=== PATIENT | male | born 1995 | race Caucasian/White ===

== ENCOUNTER 2017-03-19 09:32 | Emergency (ER) | payer BC ==
[2017-03-19] MEDS ORDERED: Sodium Chloride 0.9% 10 ML Syringe FLUSH PRN (10:25)
[2017-03-19] MEDS ORDERED: Ketorolac 30 MG/ML SDV IVPUSH ONE (10:26)
[2017-03-19] MEDS ORDERED: Sodium Chloride 0.9% 1,000 ML IV SCH (10:30)
--- NOTE | 2017-03-19 11:03 | CR ---
Chest: Two views of the chest were obtained. Comparison: No prior chest x-ray. Heart size and mediastinum are normal. Lungs are clear. Bony structures are unremarkable. Impression: 1. Nothing acute is appreciated on two-view chest x-ray. Diagnostic code #1
--- NOTE | 2017-03-19 12:31 | EDM.PDOC ---
ED HPI GENERAL MEDICAL PROBLEM - General Chief Complaint: Fever Stated Complaint: FEVER Time Seen by Provider: 03/19/17 10:14 Source of Information: Reports: Patient, Family History Limitations: Reports: No Limitations - History of Present Illness INITIAL COMMENTS - FREE TEXT/NARRATIVE: The patient presents with a cough, congestion, fever, chills, and body aches. This started a few days ago. He was seen at the walk in clinic and given something for his cough. The cough is not productive. He has no chest pain. He has no abdominal pain, nausea or vomiting. He has no health problems. Onset: Gradual Duration: Day(s): (2) Location: Reports: Generalized Quality: Reports: Ache Severity: Moderate Improves with: Reports: None Worsens with: Reports: None Associated Symptoms: Reports: Cough, Fever/Chills. 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 Chest Pain Score (Numeric/FACES): 5 - Related Data Allergies Allergy/AdvReac Type Severity Reaction Status Date / Time amoxicillin [From Augmentin] Allergy Cannot Verified 03/19/17 09:47 Remember clavulanic acid Allergy Cannot Verified 03/19/17 09:47 [From Augmentin] Remember Penicillins Allergy Cannot Verified 03/19/17 09:47 Remember Home Meds: Home Meds Oseltamivir [Tamiflu] 75 mg PO BID #10 cap 03/19/17 [Rx] Past Medical History - Past Health History Medical/Surgical History: Denies Medical/Surgical History Social & Family History - Tobacco Use Smoking Status *Q: Current Every Day Smoker Years of Tobacco use: 8 Packs/Tins Daily: 1 - Caffeine Use Caffeine Use: Reports: Soda - Recreational Drug Use Recreational Drug Use: No ED ROS GENERAL - Review of Systems Review Of Systems: See Below Constitutional: Reports: Fever, Chills, Malaise, Weakness, Fatigue HEENT: Reports: Other (Congestion) Respiratory: Reports: Cough Cardiovascular: Reports: No Symptoms Endocrine: Reports: No Symptoms GI/Abdominal: Reports: No Symptoms : Reports: No Symptoms Musculoskeletal: Reports: Muscle Pain Skin: Reports: No Symptoms ED EXAM, SEPSIS - Physical Exam Exam: See Below Exam Limited By: No Limitations General Appearance: Alert, No Apparent Distress Ears: Normal External Exam Nose: Normal Inspection Throat/Mouth: Normal Inspection Head: Atraumatic, Normocephalic Neck: Normal Inspection Respiratory/Chest: No Respiratory Distress, Lungs Clear, Normal Breath Sounds Cardiovascular: Regular Rate, Rhythm, No Edema, No Murmur GI/Abdominal Exam: Soft, Non-Tender, No Organomegaly, No Mass Back: Normal Inspection Extremities: Normal Inspection Course - Vital Signs Last Recorded V/S: Last Vital Signs Temp 99.9 F 03/19/17 11:55 Pulse 82 03/19/17 09:40 Resp 13 03/19/17 09:40 BP 128/93 H 03/19/17 09:40 Pulse Ox 98 03/19/17 09:40 - Orders/Labs/Meds Orders: Active Orders 24 hr Category Date Time Status Cardiac Monitoring [RC] . DIRECTED Care 03/19/17 10:25 Active Peripheral IV Care [RC] . DIRECTED Care 03/19/17 10:25 Active Sodium Chloride 0.9% [Normal Saline] 1,000 ml Med 03/19/17 10:30 Active IV .BOLUS Sodium Chloride 0.9% [Saline Flush] Med 03/19/17 10:25 Active 10 ml FLUSH ASDIRECTED PRN Peripheral IV Insertion Adult [OM.PC] Stat Oth 03/19/17 10:25 Ordered Medication Orders Sodium Chloride (Normal Saline) 1,000 mls @ 1,000 mls/hr IV .BOLUS LUIZA Last Admin: 03/19/17 10:40 Dose: 1,000 mls/hr Sodium Chloride (Saline Flush) 10 ml FLUSH ASDIRECTED PRN PRN Reason: Keep Vein Open Last Admin: 03/19/17 10:44 Dose: 10 ml Labs: Laboratory Tests 03/19/17 03/19/17 03/19/17 Range/Units 10:40 10:40 10:40 WBC 6.51 (4.23-9.07) K/mm3 RBC 4.93 (4.63-6.08) M/mm3 Hgb 15.3 (13.7-17.5) gm/L Hct 44.7 (40.1-51.0) % MCV 90.7 (79.0-92.2) fl MCH 31.0 (25.7-32.2) pg MCHC 34.2 (32.2-35.5) g/dl RDW Std Deviation 41.9 (35.1-43.9) fL Plt Count 130 L (163-337) K/mm3 MPV 10.7 (9.4-12.3) fl Neut % (Auto) 68.8 H (34.0-67.9) % Lymph % (Auto) 13.4 L (21.8-53.1) % Weld % (Auto) 14.7 H (5.3-12.2) % Eos % (Auto) 2.8 (0.8-7.0) Baso % (Auto) 0.3 (0.1-1.2) % Neut # (Auto) 4.48 (1.78-5.38) K/mm3 Lymph # (Auto) 0.87 L (1.32-3.57) K/mm3 Weld # (Auto) 0.96 H (0.30-0.82) K/mm3 Eos # (Auto) 0.18 (0.04-0.54) K/mm3 Baso # (Auto) 0.02 (0.01-0.08) K/mm3 Sodium 139 (136-145) mEq/L Potassium 3.9 (3.5-5.1) mEq/L Chloride 103 (98-107) mEq/L Carbon Dioxide 27 (21-32) mEq/L Anion Gap 12.9 (5-15) BUN 12 (7-18) mg/dL Creatinine 0.9 (0.7-1.3) mg/dL Est Cr Clr Drug Dosing 106.47 mL/min Estimated GFR (MDRD) > 60 (>60) mL/min BUN/Creatinine Ratio 13.3 L (14-18) Glucose 97 (74-106) mg/dL Calcium 9.0 (8.5-10.1) mg/dL Total Bilirubin 0.3 (0.2-1.0) mg/dL AST 28 (15-37) U/L ALT 25 (16-63) U/L Alkaline Phosphatase 92 (46-116) U/L Total Protein 7.7 (6.4-8.2) g/dl Albumin 4.1 (3.4-5.0) g/dl Globulin 3.6 gm/dL Albumin/Globulin Ratio 1.1 (1-2) Monoscreen Negative (NEGATIVE) Meds: Medications Generic Name Dose Route Start Last Admin Trade Name Freq PRN Reason Stop Dose Admin Sodium Chloride 1,000 mls @ 1,000 mls/hr 03/19/17 10:30 03/19/17 10:40 Normal Saline IV 1,000 mls/hr .BOLUS LUIZA Administration Sodium Chloride 10 ml 03/19/17 10:25 03/19/17 10:44 Saline Flush FLUSH 10 ml ASDIRECTED PRN Administration Keep Vein Open Discontinued Medications Generic Name Dose Route Start Last Admin Trade Name Freq PRN Reason Stop Dose Admin Ketorolac Tromethamine 30 mg 03/19/17 10:26 03/19/17 10:43 Toradol IVPUSH 03/19/17 10:27 30 mg ONETIME ONE Administration - Re-Assessments/Exams Free Text/Narrative Re-Assessment/Exam: 03/19/17 12:29 I ordered an IV NS 1L bolus, toradol 30mg IV, labs, and CXR. His CXR shows no infiltrates. His CBC and CMP look good. His mono is negative. His infleunza is positive. I will discharge him home. Departure - Departure Time of Disposition: 12:30 Disposition: Home, Self-Care 01 Condition: Good Clinical Impression: Influenza A - Discharge Information Prescriptions: Oseltamivir [Tamiflu] 75 mg PO BID #10 cap Referrals: PCP,None [Primary Care Provider] - () Tawny Benton PA-C [Physician Straightening Machine Operator] - 1 Week Forms: ED Department Discharge, ED Return to Work/School Form Additional Instructions: Take the tamiflu 2 times per day for 5 days. Take tylenol or motrin for pain and fever. Keep taking your cough medicine. Drink plenty of fluids and get some rest. - My Orders Last 24 Hours: My Active Orders 03/19/17 10:25 Cardiac Monitoring [RC] . DIRECTED Peripheral IV Care [RC] . DIRECTED Sodium Chloride 0.9% [Saline Flush] 10 ml FLUSH ASDIRECTED PRN Peripheral IV Insertion Adult [OM.PC] Stat 03/19/17 10:30 Sodium Chloride 0.9% [Normal Saline] 1,000 ml IV .BOLUS - Assessment/Plan Last 24 Hours: My Active Orders 03/19/17 10:25 Cardiac Monitoring [RC] . DIRECTED Peripheral IV Care [RC] . DIRECTED Sodium Chloride 0.9% [Saline Flush] 10 ml FLUSH ASDIRECTED PRN Peripheral IV Insertion Adult [OM.PC] Stat 03/19/17 10:30 Sodium Chloride 0.9% [Normal Saline] 1,000 ml IV .BOLUS
== END 2017-03-19 12:45 | disposition home or self-care (01) ==
LOC: JD.ED 09:32
DX: J09.X2 Influenza due to identified novel influenza A virus with other respiratory manifestations (principal); F17.210 Nicotine dependence, cigarettes, uncomplicated; Z88.1 Allergy status to other antibiotic agents; Z88.0 Allergy status to penicillin
CPT/HCPCS: 36415; 71020; 80053; 85025; 86308; 87804; 96361; 96374; 99284; J1885; J7040; J7050

== ENCOUNTER 2017-07-31 02:36 | Emergency (ER) | payer SELFPAY ==
--- NOTE | 2017-07-31 03:03 | EDM.PDOC ---
ED HPI GENERAL MEDICAL PROBLEM - General Chief Complaint: ENT Problem Stated Complaint: TOOTH PAIN Time Seen by Provider: 07/31/17 02:49 Source of Information: Reports: Patient History Limitations: Reports: No Limitations - History of Present Illness INITIAL COMMENTS - FREE TEXT/NARRATIVE: The patient presents with tooth pain. He has a cavity to the right lateral upper incisor. He now has pain and erythema. Onset: Gradual Duration: Day(s): (Yesterday) Location: Reports: Face Quality: Reports: Sharp Severity: Severe Improves with: Reports: None Worsens with: Reports: None Associated Symptoms: Reports: No Other Symptoms Right Upper Tooth/Teeth Pain Score (Numeric/FACES): 10 - Related Data Allergies Allergy/AdvReac Type Severity Reaction Status Date / Time amoxicillin [From Augmentin] Allergy Cannot Verified 07/31/17 02:46 Remember clavulanic acid Allergy Cannot Verified 07/31/17 02:46 [From Augmentin] Remember Penicillins Allergy Cannot Verified 07/31/17 02:46 Remember Home Meds: Home Meds . [No Known Home Meds] 07/31/17 [History] Past Medical History - Past Health History Medical/Surgical History: Denies Medical/Surgical History Social & Family History - Tobacco Use Smoking Status *Q: Current Every Day Smoker Years of Tobacco use: 5 Packs/Tins Daily: 0.5 - Caffeine Use Caffeine Use: Reports: Soda - Recreational Drug Use Recreational Drug Use: No ED ROS ENT - Review of Systems Review Of Systems: See Below Constitutional: Reports: No Symptoms HEENT: Reports: Dental Pain Respiratory: Reports: No Symptoms Cardiovascular: Reports: No Symptoms Endocrine: Reports: No Symptoms GI/Abdominal: Reports: No Symptoms : Reports: No Symptoms ED EXAM, ENT - Physical Exam Exam: See Below Exam Limited By: No Limitations General Appearance: Alert, No Apparent Distress Ears: Normal External Exam Nose: Normal Inspection Mouth/Throat: Other (Cavity of the righht upper lateral incissor with erythema and edema with pain upon palpation.) Head: Atraumatic, Normocephalic Neck: Normal Inspection Respiratory/Chest: No Respiratory Distress Course - Vital Signs Last Recorded V/S: Last Vital Signs Temp 98.2 F 07/31/17 02:43 Pulse 95 07/31/17 02:43 Resp 18 07/31/17 02:43 BP 127/85 07/31/17 02:43 Pulse Ox 100 07/31/17 02:43 Departure - Departure Time of Disposition: 03:00 Disposition: Home, Self-Care 01 Condition: Good Clinical Impression: Dental caries, Dental abscess, Pain, dental - Discharge Information Additional Instructions: Take the clindamycin 4 times per day for 10 day. Take the hydrocodone as needed for pain. Follow up with your dentist. Please return if you are worse.
== END 2017-07-31 03:10 | disposition home or self-care (01) ==
LOC: JD.ED 02:36
DX: K04.7 Periapical abscess without sinus (principal); K02.9 Dental caries, unspecified; F17.210 Nicotine dependence, cigarettes, uncomplicated; Z88.1 Allergy status to other antibiotic agents; Z88.0 Allergy status to penicillin
CPT/HCPCS: 99282; 99283

== ENCOUNTER 2017-10-02 03:46 | Emergency (ER) | payer BC ==
[2017-10-02] MEDS ORDERED: Naproxen 500 MG Tab PO ONE (04:17)
--- NOTE | 2017-10-02 04:24 | EDM.PDOC ---
ED HPI GENERAL MEDICAL PROBLEM - General Chief Complaint: General Stated Complaint: TOOTH ACHE Time Seen by Provider: 10/02/17 04:01 Source of Information: Reports: Patient, Old Records History Limitations: Reports: No Limitations - History of Present Illness INITIAL COMMENTS - FREE TEXT/NARRATIVE: The patient states that his pain to an upper right incisor. He states that the tooth broke about 6 months ago, but that he has been having increasing pain over the last few days. Medical records indicate that the patient was seen in this ED by Dr. Sandhu on for the same complaint. He was prescribed clindamycin and 20 tablets of [place]. He states that he took about half of the clindamycin, but that his tooth started feeling better, so he stopped taking it. He restarted taking the leftover clindamycin last week, although states that he still has about 3 or 4 days worth remaining. The patient was instructed to follow-up with a dentist, but never has. No recent fever oral drainage. 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 Right Upper Tooth/Teeth Pain Score (Numeric/FACES): 10 - Related Data Allergies Allergy/AdvReac Type Severity Reaction Status Date / Time amoxicillin [From Augmentin] Allergy Cannot Verified 10/02/17 03:57 Remember clavulanic acid Allergy Cannot Verified 10/02/17 03:57 [From Augmentin] Remember Penicillins Allergy Cannot Verified 10/02/17 03:57 Remember Home Meds: Home Meds Naproxen 1 tab PO Q12H PRN #20 tablet 10/02/17 [Rx] Past Medical History HEENT History: Reports: Other (See Below) (Poor dentition) Social & Family History - Tobacco Use Smoking Status *Q: Current Every Day Smoker Years of Tobacco use: 8 Packs/Tins Daily: 0.5 - Caffeine Use Caffeine Use: Reports: Soda - Alcohol Use Alcohol Use History: Yes Alcohol Use Frequency: Binges - Recreational Drug Use Recreational Drug Use: No - Living Situation & Occupation Living situation: Reports: , with Significant Other (Girlfriend and her 2 kids) Occupation: Employed ([employer]) ED ROS GENERAL - Review of Systems Review Of Systems: ROS reveals no pertinent complaints other than HPI. ED EXAM, GENERAL - Physical Exam Exam: See Below Exam Limited By: No Limitations General Appearance: Alert, WD/WN, No Apparent Distress Eye Exam: Bilateral Eye: Normal Inspection Ears: Normal External Exam, Normal Canal, Hearing Grossly Normal, Normal TMs Nose: Normal Inspection, Normal Mucosa, No Blood Throat/Mouth: Normal Inspection, Normal Oropharynx, Normal Voice, No Airway Compromise, Other (Test #1 absent. Tooth #2 with fracture posteriorly. Teeth #3 , 4, 5 with fillings. Tooth #6 (the tooth of concern) with extensive decay. Tooth #11 redundant. Tooth #13 with filling. Tooth #14 with extensive decay. Tooth #16 absent. Tooth #17 absent. Tooth #20 with crown and braces bracket. Teeth #27, 28, 29 with braces brackets. Tooth #31 carious. Tooth #32 absent. No significant interval swelling or pointing. No drainage.) Head: Atraumatic, Normocephalic Neck: Normal Inspection, Supple, Non-Tender, Full Range of Motion. No: Lymphadenopathy (L), Lymphadenopathy (R) Course - Vital Signs Last Recorded V/S: Last Vital Signs Temp 36.9 C 10/02/17 03:54 Pulse 80 10/02/17 03:54 Resp 18 10/02/17 03:54 BP 148/95 H 10/02/17 03:54 Pulse Ox 99 10/02/17 03:54 - Orders/Labs/Meds Meds: Medications Discontinued Medications Generic Name Dose Route Start Last Admin Trade Name Liz PRN Reason Stop Dose Admin Naproxen 500 mg 10/02/17 04:17 10/02/17 04:22 Naprosyn PO 10/02/17 04:18 500 mg ONETIME ONE Administration - Re-Assessments/Exams Free Text/Narrative Re-Assessment/Exam: 10/02/17 04:17 The patient has numerous dental issues. I'm concerned that he stopped taking his clindamycin after a few days when it was prescribed on 07/31/2017, and I'm even more concerned that he did not follow-up with a dentist, as instructed. Since he still has several days of clindamycin remaining, I don't see an indication to prescribe additional, and while I can prescribe some naproxen for his dental pain tonight, ultimately, the patient needs to get in and see a dentist. This was impressed upon him. He'll be discharged home with a list of local dentists, and I will e-prescribe a ten-day course of naproxen. 10/02/17 04:24 Notified that the patient has requested a note for work. As he told me that he will be seeing a dentist today, I will write a note for him to return to work tomorrow. Departure - Departure Time of Disposition: 04:18 Disposition: Home, Self-Care 01 Condition: Good Clinical Impression: Dentalgia - Discharge Information Prescriptions: Naproxen 1 tab PO Q12H PRN #20 tablet PRN Reason: Pain Referrals: PCP,None [Primary Care Provider] - Forms: ED Department Discharge, ED Return to Work/School Form Additional Instructions: You were seen in the emergency room for dental pain. On examination, you have extensive decay of your tooth #6, but other teeth are in bad shape, as well. Since you have several days of left-over clindamycin, we recommend that you continue to take that, as previously prescribed. You have been started on the pain reliever naproxen. A prescription for naproxen has been sent to the [facility], [address] [place] [address]. Take one tablet every 12 hours, with food, as prescribed. If you take naproxen, do not also take ibuprofen/Motrin/Advil. As discussed, it is IMPERATIVE that you get in to see a dentist. The emergency room is not in a position to help you with your dental issues. A list of local dentists has been provided to you. A note for work has been provided, as requested.
== END 2017-10-02 04:40 | disposition home or self-care (01) ==
LOC: JD.ED 03:46
DX: K03.81 Cracked tooth (principal); K02.9 Dental caries, unspecified; F17.210 Nicotine dependence, cigarettes, uncomplicated; Z88.0 Allergy status to penicillin; Z88.1 Allergy status to other antibiotic agents
CPT/HCPCS: 99282; A9270; 99283

== ENCOUNTER 2017-12-15 13:03 | Emergency (ER) | payer BC ==
--- NOTE | 2017-12-15 13:44 | EDM.PDOC ---
ED HPI GENERAL MEDICAL PROBLEM - General Chief Complaint: ENT Problem Stated Complaint: TOOTH PAIN Time Seen by Provider: 12/15/17 13:40 Source of Information: Reports: Patient History Limitations: Reports: No Limitations - History of Present Illness INITIAL COMMENTS - FREE TEXT/NARRATIVE: 22-year-old male presents the ED with dental pain right upper teeth. He's been seeing the dentist and had a root canal done on the canine tooth and a temporary catheter placed. Subsequently he has developed pain in the adjacent tooth i.e. the first bicuspid. He has had x-rays of the area with no identified infective process. Currently pain is rating up into the right magali-face particularly under his INR to his right temporal scalp. 2 words his right ear as well. No fever or chills. Examination reveals tenderness to touch of the tongue blade to the canine the first and second bicuspids and the first molar tooth. Onset: Gradual Onset Date: 12/11/17 Duration: Day(s):, Getting Worse Location: Reports: Face (Right magali-face starting in the right maxilla.) Quality: Reports: Ache, Throbbing Severity: Moderate Improves with: Reports: None (810) Worsens with: Reports: None Context: Denies: Activity, Exercise, Lifting, Sick Contact, Trauma, Other Associated Symptoms: Reports: No Other Symptoms Treatments SMEARER: Reports: NSAIDS (Motrin.) Right Oral/Mouth Pain Score (Numeric/FACES): 7 - Related Data Allergies Allergy/AdvReac Type Severity Reaction Status Date / Time amoxicillin [From Augmentin] Allergy Cannot Verified 12/15/17 13:33 Remember clavulanic acid Allergy Cannot Verified 12/15/17 13:33 [From Augmentin] Remember Penicillins Allergy Cannot Verified 12/15/17 13:33 Remember Home Meds: Home Meds Naproxen 1 tab PO Q12H PRN #20 tablet 10/02/17 [Rx] Clindamycin HCl 300 mg PO TID #24 capsule 12/15/17 [Rx] oxyCODONE HCl/Acetaminophen [Percocet 5-325 mg Tablet] 1 - 2 each PO Q4H PRN # 16 tablet 12/15/17 [Rx] Past Medical History - Past Health History Medical/Surgical History: Denies Medical/Surgical History HEENT History: Reports: Other (See Below) Social & Family History - Tobacco Use Smoking Status *Q: Current Every Day Smoker Years of Tobacco use: 9 Packs/Tins Daily: 0.5 - Caffeine Use Caffeine Use: Reports: Coffee - Recreational Drug Use Recreational Drug Use: No - Living Situation & Occupation Living situation: Reports: , with Significant Other (Girlfriend and her 2 kids) Occupation: Employed ([employer]) ED ROS ENT - Review of Systems Review Of Systems: See Below Constitutional: Reports: Weakness, Fatigue (Not sleeping.). Denies: Fever, Chills, Malaise HEENT: Reports: Dental Pain Respiratory: Reports: No Symptoms Cardiovascular: Reports: No Symptoms Endocrine: Reports: No Symptoms GI/Abdominal: Reports: No Symptoms : Reports: No Symptoms Musculoskeletal: Reports: No Symptoms Skin: Reports: No Symptoms Neurological: Reports: No Symptoms Psychiatric: Reports: No Symptoms Hematologic/Lymphatic: Reports: No Symptoms ED EXAM, ENT - Physical Exam Exam: See Below Exam Limited By: No Limitations General Appearance: Alert, WD/WN, No Apparent Distress, Other (Right magali-face is perhaps mildly swollen over the maxillary sinus area as compared to the left. ) Eye Exam: Bilateral Eye: Normal Inspection, PERRL Mouth/Throat: Dental Pain (Dental pain originating from a That is been placed temporarily over the right upper canine tooth. Also pain to the first and second bicuspid teeth and the first molar tooth on palpation with a tongue blade.) Head: Atraumatic ( No gingiva wall abscess evident.), Normocephalic Neck: Normal Inspection, Supple, Non-Tender, Full Range of Motion. No: Lymphadenopathy (L), Lymphadenopathy (R) Respiratory/Chest: No Respiratory Distress, Lungs Clear, Normal Breath Sounds, No Accessory Muscle Use Cardiovascular: Normal Peripheral Pulses, Regular Rate, Rhythm, No Edema, No Gallop, No Murmur Course - Vital Signs Last Recorded V/S: Last Vital Signs Temp 36.6 C 12/15/17 13:29 Pulse 74 12/15/17 13:29 Resp 18 12/15/17 13:29 BP 135/86 12/15/17 13:41 Pulse Ox 98 12/15/17 13:29 - Radiology Interpretation Free Text/Narrative:: 22-year-old male presents to the ED with dental pain originating in the right upper teeth. He's had a root canal done on the canine tooth with a temporary. Clinically he has pain on palpation of this tooth as well as the first and second bicuspid teeth and the first upper molar. No gingiva wall abscesses are evident. Plan he'll be placed on clindamycin 300 mg 3 times a day for 8 days. Percocet tabs 5/3/25 one or 2 tablets every 4-6 hours needed for pain relief 16 tablet provided. Continue Aleve 2 tablets every 8 hours or Motrin 600 mg every 6 hours to relieve pain and inflammation. Follow-up with dentist when able. Departure - Departure Time of Disposition: 13:41 Disposition: Home, Self-Care 01 Condition: Fair Clinical Impression: Dental infection - Discharge Information *PRESCRIPTION DRUG MONITORING PROGRAM REVIEWED*: Not Applicable *COPY OF PRESCRIPTION DRUG MONITORING REPORT IN PATIENT DONNA: Not Applicable Prescriptions: Clindamycin HCl 300 mg PO TID #24 capsule oxyCODONE HCl/Acetaminophen [Percocet 5-325 mg Tablet] 1 - 2 each PO Q4H PRN # 16 tablet PRN Reason: pain relief. Instructions: Dental Abscess, [id number] Referrals: PCP,None [Primary Care Provider] - Forms: ED Department Discharge Additional Instructions: Evaluation the emergent today in regards to persistent dental pain presumably due to root abscess. It appears that 3 out of the 4 teeth the right upper maxilla are tender to touch with a tongue blade. Gauze the canine tooth and the first and second bicuspid teeth as well as the first molar. No gingiva all abscess is evident. Treatment is therefore antibiotic clindamycin 300 mg tablet 3 times daily for the next 8 days to clear up infection completely. It is very important to complete the full course of antibiotic otherwise the infection will not go away completely. Continue Motrin 600 mg every 6 hours or Aleve 2 tablets every 8 hours for pain and inflammation. Percocet tablets 5/3/25 milligrams strength one or 2 every 4-6 hours for pain relief not controlled by Motrin or Aleve alone. Note he cannot drive a motor vehicle or operate machinery while taking strong pain medication. Of course follow-up with dentist when able. It may be that one of the teeth has to be extracted to eradicate infection completely.
== END 2017-12-15 13:50 | disposition home or self-care (01) ==
LOC: JD.ED 13:03
DX: K04.7 Periapical abscess without sinus (principal); F17.210 Nicotine dependence, cigarettes, uncomplicated; Z88.1 Allergy status to other antibiotic agents; Z88.0 Allergy status to penicillin; Z79.899 Other long term (current) drug therapy
CPT/HCPCS: 99283

== ENCOUNTER 2018-01-20 17:28 | Emergency (ER) | payer BC ==
--- NOTE | 2018-01-20 18:16 | EDM.PDOC ---
ED HPI GENERAL MEDICAL PROBLEM - General Chief Complaint: ENT Problem Stated Complaint: TOOTH PAIN Time Seen by Provider: 01/20/18 17:51 Source of Information: Reports: Patient, Family, Significant Other (Girlfriend) History Limitations: Reports: No Limitations - History of Present Illness INITIAL COMMENTS - FREE TEXT/NARRATIVE: The patient states that he had an upper right tooth extracted yesterday. The dentist prescribed Tavares and azithromycin. He states that after the lidocaine wore off yesterday, he developed significant pain to the area. The patient states that he filled and started to take the azithromycin and Tavares today, and states that he is also taking ibuprofen. He revisited the dentist again today, and was told that he would need to be patient, to allow the azithromycin to become effective before the swelling and pain would reduce. The patient now presents to the ED for a second opinion, although states that his pain significantly reduced about 15 minutes ago, and that he now feels silly for having come to the ED. No recent fever. The patient does not have a PCP. Treatments CORNER FORMER: Reports: Acetaminophen, Cold Therapy, NSAIDS Right Upper Face Pain Score (Numeric/FACES): 7 - Related Data Allergies Allergy/AdvReac Type Severity Reaction Status Date / Time amoxicillin [From Augmentin] Allergy Cannot Verified 01/20/18 18:25 Remember clavulanic acid Allergy Cannot Verified 01/20/18 18:25 [From Augmentin] Remember Penicillins Allergy Cannot Verified 01/20/18 18:25 Remember Home Meds: Home Meds Azithromycin [Zithromax] 1 tab PO DAILY 01/20/18 [History] Hydrocodone/Acetaminophen [Hydrocodon-Acetaminophen 5-325] 1 tab PO Q6HR PRN 06/08 [History] Past Medical History - Infectious Disease History Infectious Disease History: Reports: Chicken Pox, Influenza - Past Surgical History HEENT Surgical History: Reports: Oral Surgery (Dental extractions) Social & Family History - Family History Family Medical History: Noncontributory - Tobacco Use Smoking Status *Q: Current Every Day Smoker Years of Tobacco use: 9 Packs/Tins Daily: 0.5 - Caffeine Use Caffeine Use: Reports: Energy Drinks, Soda - Alcohol Use Alcohol Use History: Yes Alcohol Use Frequency: Binges - Recreational Drug Use Recreational Drug Use: No - Living Situation & Occupation Living situation: Reports: , with Significant Other (Girlfriend and her 2 kids) Occupation: Employed ([employer]) ED ROS ENT - Review of Systems Review Of Systems: ROS reveals no pertinent complaints other than HPI. ED EXAM, ENT - Physical Exam Exam: See Below Exam Limited By: No Limitations General Appearance: Alert, WD/WN, No Apparent Distress Eye Exam: Bilateral Eye: EOMI, Normal Inspection Ears: Normal External Exam, Hearing Grossly Normal Nose: Normal Inspection Mouth/Throat: Normal Inspection, Normal Lips, Normal Oropharynx, Other (Space # 4 is a socket with mild associated swelling, but no bleeding or purulent drainage.) Head: Atraumatic, Normocephalic Neck: Normal Inspection, Supple, Non-Tender, Full Range of Motion. No: Lymphadenopathy (L), Lymphadenopathy (R) Course - Vital Signs Last Recorded V/S: Last Vital Signs Temp 37.3 C 01/20/18 17:37 Pulse 67 01/20/18 17:37 Resp 16 01/20/18 17:37 BP 151/100 H 01/20/18 17:37 Pulse Ox 98 01/20/18 17:37 - Re-Assessments/Exams Free Text/Narrative Re-Assessment/Exam: 01/20/18 18:12 As above, the patient reported significant right upper mouth pain after an infected tooth was extracted yesterday. The patient is taking ibuprofen, Tavares, and azithromycin, and saw his dentist again today, who advised patience. The patient came to the ED for a "second opinion". The patient reports that his pain subsided about 15 minutes ago - the dentist was right, and now the patient feels silly for having come to the ED. Departure - Departure Time of Disposition: 18:14 Disposition: Home, Self-Care 01 Condition: Good Clinical Impression: Pain following oral surgery - Discharge Information *PRESCRIPTION DRUG MONITORING PROGRAM REVIEWED*: No *COPY OF PRESCRIPTION DRUG MONITORING REPORT IN PATIENT DONNA: No Referrals: PCP,None [Primary Care Provider] - Forms: ED Department Discharge Additional Instructions: You were seen in the emergency room for a second opinion regarding oral pain after an infected tooth was pulled yesterday. Your pain subsided shortly after arrival. We recommend that you continue to take [id number] ibuprofen, 3-4 tablets ( 600-800 mg) every 8 hours, [id number], with food, for the next 2-3 days. We recommend that you continue to take your previously prescribed Tavares every 6 hours for the next 2-3 days, as prescribed. We recommend that you continue to take the azithromycin daily, as prescribed. After 2 or 3 days, you can back off the ibuprofen and Tavares. Follow-up with your dentist as previously directed. If any other problems, please do not hesitate to return to the ER.
== END 2018-01-20 18:20 | disposition home or self-care (01) ==
LOC: JD.ED 17:28
DX: G89.18 Other acute postprocedural pain (principal); F17.210 Nicotine dependence, cigarettes, uncomplicated; Z88.1 Allergy status to other antibiotic agents; Z88.0 Allergy status to penicillin; Z79.899 Other long term (current) drug therapy; Z98.890 Other specified postprocedural states
CPT/HCPCS: 99282; 99283

== ENCOUNTER 2018-05-10 04:28 | Emergency (ER) | payer BC ==
--- NOTE | 2018-05-10 05:11 | EDM.PDOC ---
ED HPI GENERAL MEDICAL PROBLEM - General Chief Complaint: Skin Complaint Stated Complaint: POSS RASH Time Seen by Provider: 05/10/18 05:01 Source of Information: Reports: Patient History Limitations: Reports: No Limitations - History of Present Illness INITIAL COMMENTS - FREE TEXT/NARRATIVE: This is a 22-year-old male. He states he has developed a rash over the last week or so this seems be spreading. It's on his right upper arm in his lower back is left upper back. He states that at times is very itchy and seems to be spreading. He denies any fever or chills denies any other acute symptoms. - Related Data Allergies Allergy/AdvReac Type Severity Reaction Status Date / Time amoxicillin [From Augmentin] Allergy Cannot Verified 05/10/18 04:38 Remember clavulanic acid Allergy Cannot Verified 05/10/18 04:38 [From Augmentin] Remember Penicillins Allergy Cannot Verified 05/10/18 04:38 Remember Home Meds: Home Meds Cephalexin [Keflex] 500 mg PO TID #21 capsule 05/10/18 [Rx] Mupirocin Cream [Bactroban Crm] 15 gm .XX BID #1 tube 05/10/18 [Rx] Past Medical History - Past Health History Medical/Surgical History: Denies Medical/Surgical History HEENT History: Reports: Other (See Below) Dermatologic History: Reports: Other (See Below) Other Dermatologic History: gynecomastia reduction procedure - Infectious Disease History Infectious Disease History: Reports: Chicken Pox, Influenza - Past Surgical History HEENT Surgical History: Reports: Oral Surgery Social & Family History - Family History Family Medical History: Noncontributory - Tobacco Use Smoking Status *Q: Current Every Day Smoker Years of Tobacco use: 8 Packs/Tins Daily: 0.5 - Caffeine Use Caffeine Use: Reports: Coffee, Soda - Recreational Drug Use Recreational Drug Use: No - Living Situation & Occupation Living situation: Reports: , with Significant Other (Girlfriend and her 2 kids) Occupation: Employed ([employer]) ED ROS GENERAL - Review of Systems Review Of Systems: See Below Constitutional: Denies: Fever, Chills HEENT: Reports: No Symptoms Respiratory: Reports: No Symptoms Cardiovascular: Reports: No Symptoms Endocrine: Reports: No Symptoms GI/Abdominal: Reports: No Symptoms : Reports: No Symptoms Musculoskeletal: Reports: No Symptoms Skin: Reports: Rash Neurological: Reports: No Symptoms Psychiatric: Reports: No Symptoms Hematologic/Lymphatic: Reports: No Symptoms ED EXAM, SKIN/RASH Exam: See Below Exam Limited By: No Limitations General Appearance: Alert, WD/WN, No Apparent Distress Eye Exam: Bilateral Eye: Normal Inspection Ears: Normal External Exam Nose: Normal Inspection Throat/Mouth: Normal Inspection, Normal Lips, Normal Voice, No Airway Compromise Head: Normocephalic Neck: Supple Respiratory/Chest: No Respiratory Distress Back Exam: Full Range of Motion Extremities: Normal Range of Motion Neurological: Alert, Oriented Psychiatric: Normal Affect, Normal Mood Skin: Rash, Other (He has a reddened slightly raised rash that appears to be more like folliculitis with some areas that appear to be more of a grouping. There is no drainage they do not appear to be wet. They do appear to be spreading where he seems to scratch.) Location, Skin: Back, Upper Extremity, Right Characteristics: Maculopapular, Patchy Associated features: Inflammation. No: Warmth, Tenderness, Crusting, Weeping Course - Vital Signs Last Recorded V/S: Last Vital Signs Temp 97 F 05/10/18 04:36 Pulse 77 05/10/18 04:36 Resp 18 05/10/18 04:36 BP 146/104 H 05/10/18 04:36 Pulse Ox 100 05/10/18 04:36 Departure - Departure Time of Disposition: 05:08 Disposition: Home, Self-Care 01 Condition: Good Clinical Impression: Folliculitis - Discharge Information *PRESCRIPTION DRUG MONITORING PROGRAM REVIEWED*: Not Applicable *COPY OF PRESCRIPTION DRUG MONITORING REPORT IN PATIENT DONNA: Not Applicable Prescriptions: Cephalexin [Keflex] 500 mg PO TID #21 capsule Mupirocin Cream [Bactroban Crm] 15 gm .XX BID #1 tube Instructions: Rash Referrals: PCP,None [Primary Care Provider] - Additional Instructions: When you get the antibiotic and the ointment from the pharmacy start taking it right away, take the antibiotic 3 times a day with food, use the ointment twice a day preferably after showering, try not to scratch the rash because you can spread it, when you are in the shower gently scrubbed the areas to keep very clean, follow-up with your family doctor as needed or return to the ER if needed
== END 2018-05-10 05:22 | disposition home or self-care (01) ==
LOC: JD.ED 04:28
DX: L73.9 Follicular disorder, unspecified (principal); F17.210 Nicotine dependence, cigarettes, uncomplicated; Z88.0 Allergy status to penicillin; Z88.8 Allergy status to other drugs, medicaments and biological substances; Z88.1 Allergy status to other antibiotic agents
CPT/HCPCS: 99282

== ENCOUNTER 2019-05-13 05:47 | Emergency (ER) | payer SELFPAY ==
--- NOTE | 2019-05-13 06:14 | EDM.PDOC ---
<CristopherLuciano Torie - Last Filed: 05/13/19 07:07> ED HPI GENERAL MEDICAL PROBLEM - General Chief Complaint: General Stated Complaint: PINKY FINGER ON LEFT HAND HURTS/NOT FEELING WELL Time Seen by Provider: 05/13/19 05:50 Source of Information: Reports: Patient History Limitations: Reports: No Limitations - History of Present Illness INITIAL COMMENTS - FREE TEXT/NARRATIVE: Mr. Rajput is a pleasant 23-year-old man with no chronic medical issues, who states that he woke up around 4:30 this morning with a sore throat, nasal congestion, and generalized malaise. He states that his head feels fuzzy and cloudy. He denies a history of strep throat. No recent cough, dyspnea, vomiting , or diarrhea. He did not take any joax-zjg-jyfcxae or home remedies prior to coming to the ED. The patient also reports a left 5th finger problem, where sometimes, especially in the morning, he either can't extend it or can't contract it. He feels some pain and swelling in his PIP joint. No trauma to the finger. Here in the ED, the patient is found to be hemodynamically stable, afebrile, with a normal oxygen saturation on room air. The patient does not have a PCP. He did not receive an influenza vaccine this season, but agreed to receive one here today. - Related Data Allergies Allergy/AdvReac Type Severity Reaction Status Date / Time amoxicillin [From Augmentin] Allergy Cannot Verified 05/13/19 05:58 Remember clavulanic acid Allergy Cannot Verified 05/13/19 05:58 [From Augmentin] Remember Penicillins Allergy Cannot Verified 05/13/19 05:58 Remember Home Meds: Home Meds . [No Known Home Meds] 05/13/19 [History] Past Medical History - Infectious Disease History Infectious Disease History: Reports: Chicken Pox, Influenza - Past Surgical History HEENT Surgical History: Reports: Oral Surgery (dental extractions) Oncologic Surgical History: Reports: Other (See Below) (Right gynecomastia reduction) Social & Family History - Family History Family Medical History: Noncontributory - Tobacco Use Smoking Status *Q: Current Every Day Smoker Years of Tobacco use: 10 Packs/Tins Daily: 0.5 - Caffeine Use Caffeine Use: Reports: Soda - Alcohol Use Alcohol Use History: Yes Alcohol Use Frequency: Binges - Recreational Drug Use Recreational Drug Use: Yes Drug Use in Last 12 Months: No Recreational Drug Type: Reports: Marijuana/Hashish (last smoked 2017) - Living Situation & Occupation Living situation: Reports: , Single, with Family Occupation: Employed ([employer]) ED ROS GENERAL - Review of Systems Review Of Systems: Comprehensive ROS is negative, except as noted in HPI. ED EXAM, GENERAL - Physical Exam Exam: See Below Exam Limited By: No Limitations General Appearance: Alert, WD/WN, No Apparent Distress Eye Exam: Bilateral Eye: EOMI, Normal Inspection Ears: Normal External Exam, Normal Canal, Hearing Grossly Normal, Normal TMs Nose: Normal Inspection, No Blood, Other (Bilateral nasal mucosa edema) Throat/Mouth: Normal Inspection, Normal Lips, Normal Teeth, Normal Gums, Normal Oropharynx, Normal Voice, No Airway Compromise Head: Atraumatic, Normocephalic Neck: Normal Inspection, Supple, Non-Tender, Full Range of Motion. No: Lymphadenopathy (L), Lymphadenopathy (R) Respiratory/Chest: No Respiratory Distress, Lungs Clear, Normal Breath Sounds, No Accessory Muscle Use Cardiovascular: Normal Peripheral Pulses, Regular Rate, Rhythm, No Edema, No Gallop, No JVD, No Murmur, No Rub Peripheral Pulses: 4+: Radial (L), Radial (R) GI/Abdominal: Normal Bowel Sounds, Soft, Non-Tender, No Organomegaly, No Distention, No Abnormal Bruit, No Mass (Male) Exam: Deferred Rectal (Males) Exam: Deferred Back Exam: Normal Inspection, Full Range of Motion, NT Extremities: Normal Inspection, Normal Range of Motion, No Pedal Edema, Normal Capillary Refill Neurological: Alert, Oriented, Normal Cognition, No Motor/Sensory Deficits Psychiatric: Normal Affect Skin Exam: Warm, Dry, Intact, Normal Color, No Rash Course - Vital Signs Last Recorded V/S: Last Vital Signs Temp 97.7 F 05/13/19 05:55 Pulse 83 05/13/19 05:55 Resp 14 05/13/19 05:55 BP 131/86 05/13/19 05:55 Pulse Ox 96 05/13/19 05:55 - Orders/Labs/Meds Orders: Active Orders 24 hr Category Date Time Status Influenza Vaccine Charge [RC] .DISCHARGE Care 05/13/19 06:15 Active CULTURE STREP A CONFIRMATION [RM] Stat Lab 05/13/19 06:14 Results STREP SCRN A RAPID W CULT CONF [RM] Stat Lab 05/13/19 06:14 Results Meds: Medications Discontinued Medications Generic Name Dose Route Start Last Admin Trade Name Liz PRN Reason Stop Dose Admin Influenza Virus Vaccine 60 mcg 05/13/19 06:30 05/13/19 06:43 Fluzone Quad [id number] Syringe IM 05/13/19 06:31 60 mcg .ONCE ONE Administration - Re-Assessments/Exams Free Text/Narrative Re-Assessment/Exam: 05/13/19 06:13 The patient likely has a viral URI, however, I have ordered a rapid strep test and influenza swab. Since he is hemodynamically stable, afebrile, with a normal oxygen saturation on room air, and since he has only been symptomatic for about an hour and a half, I do not see an indication for blood work or chest x-ray. With respect to the patient's left 5th finger, he is describing trigger finger. 05/13/19 07:13 The patient's rapid strep step test is negative. His influenza swab is negative. Departure - Departure Disposition: Home, Self-Care 01 Clinical Impression: Viral upper respiratory infection Finger sprain Qualifiers: Encounter type: initial encounter Finger: little finger Sprain of finger site: interphalangeal joint Laterality: left Qualified Code(s): S63.637A - Sprain of interphalangeal joint of left little finger, initial encounter - Discharge Information Referrals: PCP,None [Primary Care Provider] - Forms: ED Department Discharge Additional Instructions: vaporizer or steam as needed, advil or ibuprofen 600 mg 3 times daily as needed , Ice packs as needed for finger swelling, use splint as needed. Follow up clinic as needed, return to ED as needed. Sepsis Event Note - Evaluation Sepsis Screening Result: No Definite Risk - Focused Exam Vital Signs: Vital Signs Temp Pulse Resp BP Pulse Ox 05/13/19 05:55 97.7 F 83 14 131/86 96 Date Exam was Performed: 05/13/19 Time Exam was Performed: 07:07 <Kaveh Scales - Last Filed: 05/13/19 07:19> Course - Re-Assessments/Exams Free Text/Narrative Re-Assessment/Exam: 05/13/19 07:16 Have assumed care from Dr Nicholas at change of shift. I have also interviewed and examined patient. I agree with his hx and exam as documented. Departure - Departure Time of Disposition: 07:16 Condition: Fair Sepsis Event Note - Focused Exam Date Exam was Performed: 05/13/19 Time Exam was Performed: 07:16
[2019-05-13] MEDS ORDERED: FLU Vacc QS2019-20(6MOS+)/PF 60 MCG/0.5 ML SYRINGE IM ONE (06:30)
== END 2019-05-13 07:25 | disposition home or self-care (01) ==
LOC: JD.ED 05:47
DX: S63.637A Sprain of interphalangeal joint of left little finger, initial encounter (principal); J06.9 Acute upper respiratory infection, unspecified; Z23 Encounter for immunization; F17.210 Nicotine dependence, cigarettes, uncomplicated; Z88.0 Allergy status to penicillin; Z88.1 Allergy status to other antibiotic agents; Z98.890 Other specified postprocedural states; X50.9XXA Other and unspecified overexertion or strenuous movements or postures, initial encounter
CPT/HCPCS: 87081; 87430; 87804; 90686; 99282; 99283-25; G0008

== ENCOUNTER 2020-08-11 20:46 | Emergency (ER) | payer BC ==
[2020-08-11] MEDS ORDERED: Lidocaine/EPINEPHrine/Tetracaine Soln 1 ML TOP ONE (21:07)
--- NOTE | 2020-08-11 21:26 | EDM.PDOC ---
ED HPI GENERAL MEDICAL PROBLEM - General Chief Complaint: Skin Complaint Stated Complaint: SWOLLEN PIMPLE ON FACE Time Seen by Provider: 08/11/20 20:50 Source of Information: Reports: Patient History Limitations: Reports: No Limitations - History of Present Illness INITIAL COMMENTS - FREE TEXT/NARRATIVE: The patient presents with a pimple to the right side of his face. This started a few days ago. He has no fever. He has some redness and swelling to the right mandibular part of his face. Onset: Gradual Duration: Day(s): Location: Reports: Face Quality: Reports: Sharp Severity: Moderate Improves with: Reports: None Worsens with: Reports: None Associated Symptoms: Reports: No Other Symptoms Right Face/Facial Pain Score (Numeric/FACES): 4 - Related Data Allergies Allergy/AdvReac Type Severity Reaction Status Date / Time amoxicillin [From Augmentin] Allergy Severe Cannot Verified 08/11/20 21:00 Remember clavulanic acid Allergy Severe Cannot Verified 08/11/20 21:00 [From Augmentin] Remember Penicillins Allergy Severe Cannot Verified 08/11/20 21:00 Remember Home Meds: Home Meds cephALEXin [Keflex] 500 mg PO Q8H #30 cap 08/11/20 [Rx] Past Medical History - Past Health History Medical/Surgical History: Denies Medical/Surgical History HEENT History: Reports: Other (See Below) Dermatologic History: Reports: Other (See Below) Other Dermatologic History: gynecomastia reduction procedure - Infectious Disease History Infectious Disease History: Reports: Chicken Pox, Influenza - Past Surgical History HEENT Surgical History: Reports: Oral Surgery Other HEENT Surgeries/Procedures: tooth extractions Endocrine Surgical History: Reports: Other (See Below) Other Endocrine Surgeries/Procedures: right gyno reduction Social & Family History - Family History Family Medical History: No Pertinent Family History - Tobacco Use Tobacco Use Status *Q: Current Every Day Tobacco User Years of Tobacco use: 10 Packs/Tins Daily: 0.5 - Caffeine Use Caffeine Use: Reports: Soda - Recreational Drug Use Recreational Drug Use: No - Living Situation & Occupation Living situation: Reports: , Single, with Family 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 GENERAL - Review of Systems Review Of Systems: See Below Constitutional: Reports: No Symptoms HEENT: Reports: No Symptoms Respiratory: Reports: No Symptoms Cardiovascular: Reports: No Symptoms Endocrine: Reports: No Symptoms GI/Abdominal: Reports: No Symptoms : Reports: No Symptoms Musculoskeletal: Reports: No Symptoms ED EXAM, SKIN/RASH Exam: See Below Exam Limited By: No Limitations General Appearance: Alert, No Apparent Distress Ears: Normal External Exam Nose: Normal Inspection Head: Other (Erythema and edema to the right side of his face over the mandible with a pustule) ED SKIN PROCEDURES - I&D Site: Right face Skin Prep: Other (Chlorprep) Local Anesthesia: Lidocaine: Other (LET) Area Incised With: Needle Drainage: Moderate Amount Probed to Break Up Loculations: No Complications: No Course - Vital Signs Last Recorded V/S: Last Vital Signs Temp 97.4 F 08/11/20 20:57 Pulse 81 08/11/20 20:57 Resp 16 08/11/20 20:57 BP 131/80 08/11/20 20:57 Pulse Ox 97 08/11/20 20:57 - Orders/Labs/Meds Orders: Active Orders 24 hr Category Date Time Status cephALEXin [Keflex] Med 08/11/20 21:48 Once 500 mg PO ONETIME ONE Meds: Medications Discontinued Medications Generic Name Dose Route Start Last Admin Trade Name Youq PRN Reason Stop Dose Admin Lidocaine/Tetracaine 1 ml 08/11/20 21:07 08/11/20 21:12 Lidocaine/Epinephrine/Tetracaine Soln 1 Ml TOP 08/11/20 21:08 1 ml ONETIME ONE Administration - Re-Assessments/Exams Free Text/Narrative Re-Assessment/Exam: 08/11/20 21:25 I have put some LET on the wound and I will use a needle to open it up. 08/11/20 21:49 I did open it up and moderate amount of purulent drainage came out. I will give him a dose of keflex here and a prescription for more. Departure - Departure Time of Disposition: 21:55 Disposition: Home, Self-Care 01 Condition: Good Clinical Impression: Facial abscess - Discharge Information *PRESCRIPTION DRUG MONITORING PROGRAM REVIEWED*: Not Applicable *COPY OF PRESCRIPTION DRUG MONITORING REPORT IN PATIENT DONNA: Not Applicable Prescriptions: cephALEXin [Keflex] 500 mg PO Q8H #30 cap Referrals: PCP,None [Primary Care Provider] - Araceli Perez PA-C [Physician Dry Yard Worker] - 1 Week Forms: ED Department Discharge Additional Instructions: Clean the area with warm soapy water 2 times per day and apply antibiotic ointm ent after. Put warm compresses on your face 3 times per day for 4 days. Take the keflex 3 times per day for 10 days. Please return if you are worse. Sepsis Event Note (ED) - Evaluation Sepsis Screening Result: No Definite Risk - Focused Exam Vital Signs: Vital Signs Temp Pulse Resp BP Pulse Ox 08/11/20 20:57 97.4 F 81 16 131/80 97 - My Orders Last 24 Hours: My Active Orders 08/11/20 21:48 cephALEXin [Keflex] 500 mg PO ONETIME ONE - Assessment/Plan Last 24 Hours: My Active Orders 08/11/20 21:48 cephALEXin [Keflex] 500 mg PO ONETIME ONE
[2020-08-11] MEDS ORDERED: Cephalexin 500 MG Cap PO ONE (21:48)
== END 2020-08-11 22:00 | disposition home or self-care (01) ==
LOC: JD.ED 20:46
DX: L02.01 Cutaneous abscess of face (principal); Z88.0 Allergy status to penicillin; Z72.0 Tobacco use
CPT/HCPCS: 10060; 99283; A9270

== ENCOUNTER 2020-12-27 20:50 | Emergency (ER) | payer SELFPAY ==
[2020-12-27] MEDS ORDERED: cefTRIAXone 1 GM Vial IM ONE (21:23)
[2020-12-27] MEDS ORDERED: Lidocaine 1% PF 2 ML SDV INJECT ONE (21:24)
--- NOTE | 2020-12-27 21:29 | EDM.PDOC ---
ED HPI GENERAL MEDICAL PROBLEM - General Chief Complaint: ENT Problem Stated Complaint: BROKEN TOOTH/SWOLLEN FACE Time Seen by Provider: 12/27/20 21:18 Source of Information: Reports: Patient History Limitations: Reports: No Limitations - History of Present Illness INITIAL COMMENTS - FREE TEXT/NARRATIVE: 25-year-old male presents to the ED with dental pain coming from the right lower first molar tooth. The tooth is badly decayed. He appreciates increased swelling over his outer mandible adjacent to the infected tooth which has developed over the last 12 to 24 hours. No fever or chills. Does feel some pain and pressure in his undersurface of his mandible on neck in this area. Exam reveals a badly and decayed first molar tooth with secondary infection without obvious abscess that would benefit from drainage at this time. Plan he will be given Rocephin 1 g IM with 2 mils of lidocaine. He will be placed on clindamycin 300 mg 3 times daily for the next 8 days. Hydrocodone tabs 5/325 mg strength 1 tablet every 4-6 hours necessary with Motrin 600 mg every 6 hours as necessary for pain relief. He plans on following up with a dentist when able. Onset: Gradual Onset Date: 12/24/20 Duration: Day(s):, Getting Worse Location: Reports: Face (Right mid mandible adjacent to badly decayed lower molar tooth) Quality: Reports: Ache, Throbbing Severity: Moderate (7 out of 10) Improves with: Reports: None Worsens with: Reports: Other Context: Denies: Activity (To eat or drink), Exercise, Lifting, Sick Contact, Trauma Associated Symptoms: Denies: No Other Symptoms, Confusion, Chest Pain, Cough, cough w sputum, Diaphoresis, Fever/Chills, Headaches, Loss of Appetite, Malaise, Nausea/Vomiting, Rash, Seizure, Shortness of Breath, Syncope, Weakness Treatments LINE CLOSER: Reports: Acetaminophen, NSAIDS ([place]) Right Lower Oral/Mouth Pain Score (Numeric/FACES): 8 - Related Data Allergies Allergy/AdvReac Type Severity Reaction Status Date / Time amoxicillin [From Augmentin] Allergy Severe Cannot Verified 12/27/20 21:12 Remember clavulanic acid Allergy Severe Cannot Verified 12/27/20 21:12 [From Augmentin] Remember Penicillins Allergy Severe Cannot Verified 12/27/20 21:12 Remember Home Meds: Home Meds Hydrocodone/Acetaminophen [HYDROcodone-Acetaminophen 5-325 MG] 1 each PO Q4H PRN #14 tab 12/27/20 [Rx] clindamycin HCL [Clindamycin HCl] 300 mg PO TID #24 capsule 12/27/20 [Rx] Past Medical History - Past Health History Medical/Surgical History: Denies Medical/Surgical History HEENT History: Reports: Other (See Below) Dermatologic History: Reports: Other (See Below) Other Dermatologic History: gynecomastia reduction procedure - Infectious Disease History Infectious Disease History: Reports: Chicken Pox, Influenza - Past Surgical History HEENT Surgical History: Reports: Oral Surgery Other HEENT Surgeries/Procedures: tooth extractions Endocrine Surgical History: Reports: Other (See Below) Other Endocrine Surgeries/Procedures: right gyno reduction Oncologic Surgical History: Reports: Other (See Below) Social & Family History - Family History Family Medical History: No Pertinent Family History - Tobacco Use Tobacco Use Status *Q: Current Every Day Tobacco User Years of Tobacco use: 10 Packs/Tins Daily: 0.5 - Caffeine Use Caffeine Use: Reports: Soda - Recreational Drug Use Recreational Drug Use: No - Living Situation & Occupation Living situation: Reports: , Single, with Family Occupation: Employed ([employer]) ED ROS ENT - Review of Systems Review Of Systems: See Below Constitutional: Reports: Decreased Appetite. Denies: Fever, Chills, Malaise, Weakness, Fatigue HEENT: Reports: Dental Pain (Lower molar tooth with swelling of his adjacent face over the mandible this is occurred over the last 24 hours) Respiratory: Reports: No Symptoms Cardiovascular: Reports: No Symptoms Endocrine: Reports: No Symptoms GI/Abdominal: Reports: No Symptoms : Reports: No Symptoms Musculoskeletal: Reports: No Symptoms Skin: Reports: No Symptoms Neurological: Reports: No Symptoms Psychiatric: Reports: No Symptoms Hematologic/Lymphatic: Reports: No Symptoms Immunologic: Reports: No Symptoms ED EXAM, ENT - Physical Exam Exam: See Below Exam Limited By: No Limitations General Appearance: Alert, WD/WN, No Apparent Distress, Other (She does have mild swelling over his mandible on the right side. It is partially obscured by his church and mustache area. Temperature is 36.8 degrees with a heart rate of 53 and sinus bradycardia on the monitor respiratory was 14 with O2 sats of 99% room air. BP 05/12/1970) Eye Exam: Bilateral Eye: Normal Inspection, PERRL Mouth/Throat: Dental Abcess (Right lower first molar tooth is badly decayed and appears to be the source of dental abscess with swelling of), Gum Swelling (Gingival swelling along the lower first molar tooth), Other (Sling over the right mid mandible adjacent to the infected lower first molar tooth.) Head: Atraumatic, Normocephalic, Facial Swelling (Over the right mandible about the size of a quarter firm and tender) Neck: Normal Inspection, Supple, Non-Tender, Full Range of Motion, Lymphadenopathy (R) (Very minimal submandibular adenopathy.). No: Lymphadenopathy (L) Respiratory/Chest: No Respiratory Distress ( No swelling in the neck appreciated), Lungs Clear, Normal Breath Sounds, No Accessory Muscle Use Cardiovascular: Normal Peripheral Pulses, Regular Rate, Rhythm, No Edema, No Gallop, No Murmur, No Rub Course - Vital Signs Last Recorded V/S: Last Vital Signs Temp 36.8 C 12/27/20 21:09 Pulse 53 L 12/27/20 21:09 Resp 14 12/27/20 21:09 BP 122/71 12/27/20 21:09 Pulse Ox 99 12/27/20 21:09 - Orders/Labs/Meds Meds: Medications Discontinued Medications Generic Name Dose Route Start Last Admin Trade Name Liz PRN Reason Stop Dose Admin Ceftriaxone Sodium 1 gm 12/27/20 21:23 Ceftriaxone 1 Gm Vial IM 12/27/20 21:24 ONETIME ONE Lidocaine HCl 2 ml 12/27/20 21:24 Lidocaine 1% Pf 2 Ml Sdv INJECT 12/27/20 21:25 ONETIME ONE - Radiology Interpretation Free Text/Narrative:: 25-year-old male presents to the ED with dental pain coming from a very badly decayed right lower first molar tooth. It began hurting about 4 days ago. Is been a chronic problem and is required antibiotics in a couple of occasions to treat this. States that now he does not have the finances to have the tooth ext racted in their own, stating that it would cost about $6000 for a implant tooth. Examination confirms infection coming from the decayed fractured right lower molar tooth. Some associated swelling about the size of a quarter over his mid mandible on the right side. No submandibular adenopathy in this area. Plan IM Rocephin 1 g with 2 mils of lidocaine. Oral antibiotic will be clindamycin 300 mg 3 times daily for the next 8 days. He will continue Motrin 600 mg by mouth every 6 hours as needed for relief of pain and inflammation. Hydrocodone tabs 5/325mg 1-2 tabs Q 4 hrs prn for pain not controlled by Motrin alone. He will follow up with dentist when able. Departure - Departure Time of Disposition: 21:25 Disposition: Home, Self-Care 01 Condition: Fair Clinical Impression: Dental abscess - Discharge Information *PRESCRIPTION DRUG MONITORING PROGRAM REVIEWED*: Not Applicable *COPY OF PRESCRIPTION DRUG MONITORING REPORT IN PATIENT DONNA: Not Applicable Prescriptions: clindamycin HCL [Clindamycin HCl] 300 mg PO TID #24 capsule Hydrocodone/Acetaminophen [HYDROcodone-Acetaminophen 5-325 MG] 1 each PO Q4H PRN #14 tab PRN Reason: Dental abscess Instructions: Dental Abscess, [id number] Referrals: PCP,None [Primary Care Provider] - Forms: ED Department Discharge Additional Instructions: Evaluation in the emergency room tonight in regards to dental infection and it spread to the soft tissues around your mandible or jawbone and facial cheek. Fractured tooth is the culprit that is causing current infection. Decision made to treat you with intramuscular injection of Rocephin and antibiotic that starts working in a few hours due to the rapid spread of the infection in your face and jaw. You will still need to take oral pills clindamycin 300 mg 3 times daily for 8 days to clear up infection completely but of course it has a good chance of coming back if the tooth is not fixed by the dentist. May use hydrocodone tabs 5/325 mg tablet 1 or 2 every 4-6 hours necessary for pain relief when not driving or operating machinery or motor vehicle. May use Motrin 600 mg every 6 hours to reduce pain and inflammation as well. Follow-up with dentist when able. Sepsis Event Note (ED) - Focused Exam Vital Signs: Vital Signs Temp Pulse Resp BP Pulse Ox 12/27/20 21:09 36.8 C 53 L 14 122/71 99
== END 2020-12-27 21:47 | disposition home or self-care (01) ==
LOC: JD.ED 20:50
DX: K04.7 Periapical abscess without sinus (principal); K02.9 Dental caries, unspecified; Z88.0 Allergy status to penicillin; Z72.0 Tobacco use
CPT/HCPCS: 96372; 99283; J0696

== ENCOUNTER 2024-04-18 13:29 | Day surgery (SDC) | payer BC ==
[2024-04-18] MEDS: fentaNYL 100 MCG/2 ML SDV IVPUSH ONE ×2 (14:39→14:47)
[2024-04-18 15:53] LABS: BASOPHILS PERCENT AUTO 0.7 % (0.0-1.0); EOSINOPHILS ABSOLUTE AUTO 0.3 K/mm3 (0.0-0.4); EOSINOPHILS PERCENT AUTO 4.4 % (0.0-6.0); HEMATOCRIT 41.8 % (42.0-52.0); HEMOGLOBIN 14.6 gm/dl (14.0-18.0); IMMATURE GRAN ABSOLUTE AUTO 0.01 K/mm3 (0.00-0.05); IMMATURE GRAN PERCENT AUTO 0.2 % (0.0-0.4); LYMPHOCYTES PERCENT AUTO 32.1 % (24.0-44.0); MEAN CORPUSCULAR HEMOGLOBIN 30.1 pg (28.0-32.0); MEAN CORPUSCULAR HGB CONC 34.9 g/dl (32.0-36.0); MEAN CORPUSCULAR VOLUME 86.2 fl (83.0-99.0); MEAN PLATELET VOLUME 9.8 fl (9.4-12.4); MONOCYTES ABSOLUTE AUTO 0.5 K/mm3 (0.0-0.8); MONOCYTES PERCENT AUTO 7.4 % (0.0-8.0); NEUTROPHILS ABSOLUTE AUTO 3.4 K/mm3 (1.8-7.7); NEUTROPHILS PERCENT AUTO 55.2 % (41.0-71.0); PLATELET COUNT,PLT 180 K/mm3 (150-400); RED BLOOD CELL COUNT 4.85 M/mm3 (4.52-5.90); WHITE BLOOD CELL COUNT,WBC 6.08 K/mm3 (3.9-11.3)
[2024-04-18] MEDS ORDERED: Midazolam 1 MG/ML 2 ML SDV ONE (15:55)
[2024-04-18] MEDS ORDERED: fentaNYL 250 MCG/5 ML SDV ONE (15:55)
[2024-04-18] MEDS ORDERED: Propofol 200 MG/20 ML SDV ONE (15:55)
[2024-04-18] MEDS ORDERED: Rocuronium 50 MG/5 ML Vial ONE (15:56)
[2024-04-18] MEDS ORDERED: Succinylcholine 200 MG/10 ML MDV ONE (15:56)
[2024-04-18] MEDS ORDERED: Dexamethasone 4 MG/ML 5 ML MDV ONE (15:56)
[2024-04-18] MEDS ORDERED: Lidocaine 1% 5 ML VIAL ONE (15:56)
[2024-04-18] MEDS ORDERED: Ondansetron 4 MG/2 ML SDV ONE (15:56)
[2024-04-18] MEDS: Sodium Chloride 0.9% 10 ML Syringe FLUSH ONE (16:09)
[2024-04-18] MEDS: Iopamidol 612 MG/ML 100 ML Bottle IVPUSH ONE (16:09)
[2024-04-18 16:15] LABS: A/G RATIO 1.3 (1-2); ALBUMIN 3.9 g/dl (3.4-5.0); ANION GAP 13.6 (5-15); BILIRUBIN TOTAL 0.5 mg/dL (0.2-1.0); CALCIUM 8.8 mg/dL (8.5-10.1); EST CRCL DRUG DOSING (CG) 86.93 mL/min; POTASSIUM,K 3.6 mEq/L (3.5-5.1)
[2024-04-18 16:21] LABS: LACTIC ACID 1.1 mmol/L (0.4-2.0)
[2024-04-18] MEDS ORDERED: ceFAZolin 2 GM Vial ONE (16:42)
[2024-04-18] MEDS ORDERED: HYDROmorphone 0.5 MG/0.5 ML Syringe ONE (16:51)
[2024-04-18] MEDS ORDERED: Sugammadex Sodium 200 MG/2 ML VIAL IV ONE (17:08)
[2024-04-18] MEDS ORDERED: Ketorolac 30 MG/ML SDV ONE (17:08)
[2024-04-18] MEDS: Famotidine 20 MG/2 ML SDV IVPUSH ONE (17:32)
[2024-04-18] MEDS: Metoclopramide 10 MG/2 ML SDV IVPUSH ONE (17:34)
[2024-04-18] MEDS ORDERED: HYDROmorphone 0.5 MG/0.5 ML Syringe IVPUSH PRN (18:15)
[2024-04-18] MEDS ORDERED: fentaNYL 100 MCG/2 ML SDV IVPUSH PRN (18:15)
[2024-04-18] MEDS: EPINEPHrine 1 MG/ML SDV ONE (18:40)
[2024-04-18] MEDS: Lidocaine 1% with EPINEPHrine 1:100,000 20 ML MDV ONE (18:40)
[2024-04-18] MEDS: Bupivacaine 0.5% 30 ML SDV ONE (18:40)
== END 2024-04-18 20:50 | disposition home or self-care (01) ==
LOC: JD.ED 13:29 → JD.SDS 16:35
PROVIDERS: ATTEND Surgery
DX: K42.0 Umbilical hernia with obstruction, without gangrene (principal); Z87.891 Personal history of nicotine dependence; Z88.0 Allergy status to penicillin
CPT/HCPCS: 36415; 49592; 74177; 80053; 83605; 85025; J0171; J0330; J0665; J0690; J1100; J1171; J1885; J2250; J2405; J2704; J2765; J3010; J3490; Q9967; 96374; 96375; 99284-25